=== PATIENT | female | born 1975 | race Caucasian/White ===

== ENCOUNTER 2022-07-21 21:53 | Observation (INO) ==
[2022-07-22] MEDS ORDERED: Melatonin 3 MG TABLET PO PRN (03:46)
[2022-07-22] MEDS ORDERED: Naloxone 0.4 MG/ML INJ IVP PRN ×2 (03:46→08:54)
[2022-07-22] MEDS ORDERED: Ondansetron ODT 4 MG TAB.RAPDIS SL PRN (04:00)
[2022-07-22] MEDS ORDERED: Acetaminophen 325 MG TABLET PO PRN (04:00)
[2022-07-22] MEDS: *HR* HYDROcodone/Acet 5/325 mg TABLET PO PRN ×2 (04:08→22:23)
[2022-07-22] MEDS ORDERED: *HR* Dextrose 50 % in Water (Syg) 50 ML SYRINGE IVP PRN (04:52)
[2022-07-22] MEDS ORDERED: D5% in Water 1,000 ML IVC PRN (04:52)
[2022-07-22] MEDS ORDERED: Dextrose Gel 15 GM/37.5 ML TUBE PO PRN ×2 (04:52)
[2022-07-22] MEDS ORDERED: Insulin LISPRO 300 UNITS/3 ML VIAL SUBQ SCH (06:00)
[2022-07-22] MEDS ORDERED: *HR* HYDROmorphone PF 0.5 MG/0.5 ML SYRINGE IVP PRN (07:17)
[2022-07-22] MEDS ORDERED: Promethazine 6.25 MG in Water for inj. (sterile) 20 ML IVPB PRN (07:17)
[2022-07-22] MEDS ORDERED: Ondansetron 4 MG/2 ML VIAL IVP PRN ×2 (07:17→08:54)
[2022-07-22] MEDS ORDERED: *HR* Propofol 200 MG/20 ML VIAL IVP ONE (07:24)
[2022-07-22] MEDS ORDERED: *HR* Midazolam HCl 2 MG/2 ML VIAL ONE (07:24)
[2022-07-22] MEDS ORDERED: *HR* FentaNYL (PF) 100 MCG/2 ML VIAL ONE (07:24)
[2022-07-22] MEDS ORDERED: Ondansetron 4 MG/2 ML VIAL ONE (07:25)
[2022-07-22] MEDS ORDERED: *HR* Succinylcholine 200 MG/10 ML VIAL IVP ONE (07:25)
[2022-07-22] MEDS ORDERED: Lidocaine -MPF 2% 5 ML VIAL ONE (07:25)
[2022-07-22] MEDS ORDERED: CeFAZolin Syr 2,000MG/20 ML 2,000 MG/20 ML SYRINGE IVPB ONE (07:35)
[2022-07-22] MEDS ORDERED: Ringers Solution, Lactated 1,000 ML IVC SCH ×2 (07:45→09:00)
[2022-07-22] MEDS ORDERED: Scopolamine Patch 1.5 MG PATCH.TD72 ONE (07:59)
[2022-07-22] MEDS ORDERED: Lidocaine HCL 4 ML Topical Solution (Laryng-O-Jet Kit Sterile Pak) TP ONE (08:04)
[2022-07-22] MEDS ORDERED: *HR* Rocuronium Bromide 50 MG/5 ML VIAL ONE (08:05)
[2022-07-22] MEDS ORDERED: MOM Conc 10 ML UD.LIQ PO PRN (08:54)
[2022-07-22] MEDS ORDERED: HYDROcodone BIT/Homatropine 5 MG TABLET PO PRN (08:54)
[2022-07-22] MEDS ORDERED: *HR* Promethazine 25 MG/ML VIAL IM PRN (08:54)
[2022-07-22] MEDS ORDERED: Sennosides 8.6 MG TABLET PO PRN (08:54)
[2022-07-22] MEDS: Aspirin Enteric Coated 81 MG Tablet PO SCH ×2 (11:06→19:25)
[2022-07-22] MEDS: Insulin LISPRO 300 UNITS/3 ML VIAL SUBQ SCH (18:22)
[2022-07-23 02:04] LABS: Basophils % 0.3 %; Eosinophils % 0.4 %; Hematocrit 40.9 % (35.3-44.9); Hemoglobin 13.5 g/dL (11.5-15.4); Immature Granulocytes % 0.4 % (0-4); Lymphocytes # 1.4 K/mcL (0.6-4.6); Lymphocytes % 12.6 %; Mean Corpuscular Hemoglobin 29.1 pg (28.0-33.3); Mean Corpuscular Volume 88.1 fL (83.0-100.0); Mean Platelet Volume 9.9 fL (9.4-12.4); Monocytes # 0.6 K/mcL (0.0-1.3); Monocytes % 5.6 %; Neutrophils # 9.2 K/mcL (1.6-8.9); Platelet Count 337 K/mcL (140-400); Red Blood Count 4.64 M/mcL (3.82-4.97); Red Cell Distribution Width 12.9 % (11.5-14.5); Segmented Neutrophils % 80.7 %; White Blood Count 11.4 K/mcL (4.3-11.1)
[2022-07-23 02:25] LABS: BUN/Creatinine Ratio 22 (6-26); Blood Urea Nitrogen 14 mg/dL (6-20); Calcium 8.6 mg/dL (8.6-10.3); Carbon Dioxide 23 mEq/L (23-29); Chloride 107 mEq/L (98-107); Glucose 147 mg/dL (70-105); Osmolality,Calculated 287 (280-300); Potassium 3.9 mEq/L (3.5-5.1); Sodium 137 mEq/L (136-145)
[2022-07-23] MEDS: Insulin LISPRO 300 UNITS/3 ML VIAL SUBQ SCH ×3 (09:29→17:36)
[2022-07-23] MEDS: Aspirin Enteric Coated 81 MG Tablet PO SCH ×2 (09:32→20:22)
[2022-07-23] MEDS: *HR* Heparin 5,000 UNIT/ML VIAL SQ SCH (17:50)
[2022-07-24] MEDS: *HR* Heparin 5,000 UNIT/ML VIAL SQ SCH (06:06)
[2022-07-24 06:44] VITALS: BP 107/68; TEMP 97.7; O2SAT 98
[2022-07-24] MEDS: Aspirin Enteric Coated 81 MG Tablet PO SCH (07:57)
[2022-07-24] MEDS: Insulin LISPRO 300 UNITS/3 ML VIAL SUBQ SCH (07:58)
[2022-07-24 08:28] VITALS: PULSE 88
== END 2022-07-24 11:29 | disposition home or self-care (01) ==
LOC: 4WAOSI → SUATTDRO 07-22 03:34
PROVIDERS: ADMIT Internal Medicine; ATTEND Internal Medicine